=== PATIENT | male | born 1990 | race Caucasian/White ===

== ENCOUNTER 2018-03-05 03:54 | Inpatient (IN) | payer MEDICAID ==
--- NOTE | 2018-03-05 03:59 | ED PDOC ---
Psych Transfer Clearance - Clearance Statement Clearance Statement: Reviewed vital signs, lab results and transfer papers. Patient clinically stable for psychiatric admission.
[2018-03-05 04:08] VITALS: O2SAT 98
[2018-03-05] MEDS ORDERED: Alum-Mag Hydrox-Simethicone Susp (30 mL) PO PRN (04:20)
[2018-03-05] MEDS ORDERED: Magnesium Hydroxide Susp 30 ml UD PO PRN (04:20)
[2018-03-05] MEDS ORDERED: DiphenhydrAMINE 50 mg/ml Inj IM PRN (04:20)
--- NOTE | 2018-03-05 04:43 | PCM.BM ---
Treatment Plan Problems - Problems identified on initial assessmt Hopelessness/Helplessness Date Initiated: 03/05/18 Time Initiated: 04:42 Assessment reference: NA Status: Active Medication nonadherence Date Initiated: 03/05/18 Time Initiated: 04:42 Assessment reference: NA Status: Active Treatment assets and liabiliti Patient Assests: cooperative, ADL independent, physically healthy, negotiates basic needs, cognitively intact Patient Liabilities: substance abuse, language/speech - Milieu Protocol Maintain good personal hygiene: daily Encourage regular showers, daily Remind patient to perform daily oral care, daily Assist patient to perform ADL's Conduct patient checks and document Observation sheet: Q15 minutes Maintain personal safety: every shift Educate patient to report safety concerns to staff, every shift Monitor environment for contraband/sharps Medication safety: Monitor for expected outcome, potential side effects: every shift, Assess barriers to learning: every shift, Assess readiness for medication education: every shift
[2018-03-05 05:16] VITALS: RESP 18
[2018-03-05] MEDS ORDERED: Multivitamin With Minerals Tab PO SCH (09:00)
[2018-03-05 09:12] VITALS: BP 112/63; PULSE 67; TEMP 98
--- NOTE | 2018-03-05 13:35 | PCM.PSYCH ---
Initial Psychiatric Evaluation - Initial Psychiatric Evaluation Type of Admission: Voluntary Legal Status: Capacity Chief Complaint (in patient's own words): I need to be on methadone that is why I came Patient's Reaction to Hospitalization: pt requested transfer to REHAB History of Present Illness and Precipitating Events: PT is 27 ys old male with previous psychiatric diagnosis of opiate use disorder, pt denied any previous psychiatric hospitalization or treatment pt reported started using opiates at age 16, about three years ago started using more about 30times daily { reported sniffing } as per report pt was brought to [facility] by friends for suicidal attempt, pt however denied any depression , denied any suicidal attempts reported he presented to hospital to be detoxed on methadone or suboxone pt requested to be discharged to a detox center , denied changes in sleep or appetite denied depression, denid manic or psychotic symptoms Current Medications: Active Medications Generic Name Dose Route Start Last Admin Trade Name Freq PRN Reason Stop Dose Admin Acetaminophen 650 mg 03/05/18 04:20 Tylenol 325mg Tab PO Q4 PRN pain level 4-7 Al Hydrox/Mg Hydrox/Simethicone 30 ml 03/05/18 04:20 Maalox Plus 30 Ml PO Q4 PRN Dyspepsia Clonidine HCl 0.1 mg 03/05/18 04:45 03/05/18 10:00 Catapres PO 03/08/18 04:46 0.1 mg Q8 INDY Administration Diphenhydramine HCl 50 mg 03/05/18 04:20 Benadryl IM Q6 PRN Extrapyramidal S/S Unable PO Diphenhydramine HCl 50 mg 03/05/18 04:20 Benadryl PO Q6 PRN Extrapyramidal Symptoms Diphenhydramine HCl 50 mg 03/05/18 04:23 Benadryl PO HS PRN Sleep Haloperidol 5 mg 03/05/18 04:20 Haldol PO Q4 PRN Agitation Haloperidol Lactate 5 mg 03/05/18 04:20 Haldol IM Q4 PRN Agitation, Unable to Take PO Ibuprofen 600 mg 03/05/18 04:28 Motrin Tab PO 03/08/18 04:30 Q6 PRN Pain, severe (8-10) Loperamide HCl 2 mg 03/05/18 04:28 Imodium PO Q4 PRN After Loose Bowel Movement Lorazepam 1 mg 03/05/18 04:20 Ativan PO Q4 PRN Anxiety/Agitation Lorazepam 1 mg 03/05/18 04:24 Ativan IM Q4H PRN for severe agitation Magnesium Hydroxide 30 ml 03/05/18 04:20 Milk Of Magnesia PO HS PRN Constipation Multivitamins/Minerals 1 tab 03/05/18 09:00 03/05/18 09:59 Therapeutic-M Tab PO 1 tab DAILY INDY Administration Past Psychiatric History - Past Psychiatric History Explanation of prior treatment: pt denied any previous psychiatric hospitalizations denied any previous suicidal attempts History of ETOH/Drug Use: opiate use since age 16 Pertinent Medical Hx (Current Medical&Sleep Prob, Allergies): Allergies Allergy/AdvReac Type Severity Reaction Status Date / Time No Known Allergies Allergy Verified 03/05/18 04:00 Mental Status Examination - Personal Presentation Personal Presentation: Looks stated age - Affect Affect: Constricted - Motor Activity Motor Activity: Calm - Reliability in Providing Information Reliability in Providing Information: Fair - Speech Speech: Organized - Mood Mood: Neutral - Formal Thought Process Formal Thought Process: No Impairment Additional comments: pt denied perceptual disturbances non elicited - Obsessions/Compulsions Obsessions: No Compulsions: No - Cognitive Functions Orientation: Person, Place, Situation Sensorium: Alert Attention/Concentration: Attentive Judgement: Imparied, as evidence by: Poor judgement - Risk Risk: Withdrawal DSM 5 DX - DSM 5 DSM 5 Diagnosis: opiate use disorder - Recommended/Plan of Treatment Treatment Recommendations and Plan of Treatment: pt requested to be discharged to a detox center discussed with pt starting clonidine protocol. pt declined requested to be discharged to center with methadone or suboxone discussed with pt risk of relapse on discharge and possible overdose, pt understood risks and benefits yet requested to be discharged against medical advise pt at current mental status denied suuicidal or homicidal ideations, denied perceptual disturbances, pt will be discharged against medical advise
--- NOTE | 2018-03-05 13:38 | PCM.PYCHDC ---
Mental Status Examination - Mental Status Examination Orientation: Person, Place, Situation Memory: Intact Mood: Neutral Affect: Broad Speech: Appropriate Attention: WNL Concentration: WNL Association: WNL Fund of Knowledge: WNL Formal Thought Process: No Impairment Description of patient's judgement and insight: partial insight and poor judgment Psychotic Thoughts and Behaviors: pt denied psychotic symptoms non elicited Suicidal Ideation: No Current Homicidal Ideation?: No Discharge Summary - Discharge Note Reason for Hospitalization: pt requested transfer to REHAB PT is 27 ys old male with previous psychiatric diagnosis of opiate use disorder, pt denied any previous psychiatric hospitalization or treatment pt reported started using opiates at age 16, about three years ago started using more about 30times daily { reported sniffing } as per report pt was brought to [facility] by friends for suicidal attempt, pt however denied any depression , denied any suicidal attempts reported he presented to hospital to be detoxed on methadone or suboxone pt requested to be discharged to a detox center , denied changes in sleep or appetite denied depression, denid manic or psychotic symptoms Consultations:: List each consultation separately and include: 1. Reason for request. 2. Findings. 3. Follow-up Summary of Hospital Course include:: 1. Description of specific treatment plan utilized for patients during their course of treatmen. 2. Summarize the time- course for resolution of acute symptoms and/or regressed behaviors. 3. Describe issues identified and worked on during hospitalization. 4. Describe medication utilized. 5. Describe medical problems identified and treated. 6. Reassessment of suicide risk Summary of Hospital Course: pt requested to be discharged to a detox center discussed with pt starting clonidine protocol. pt declined requested to be discharged to center with methadone or suboxone discussed with pt risk of relapse on discharge and possible overdose, pt understood risks and benefits yet requested to be discharged against medical advise pt at current mental status denied suicidal or homicidal ideations, denied perceptual disturbances, pt will be discharged against medical advise - Final Diagnosis (DSM 5) Condition upon Discharge: STABLE Disposition: HOME/ ROUTINE Follow-up Treatment Plan: pt requested to be discharged to a detox center discussed with pt starting clonidine protocol. pt declined requested to be discharged to center with methadone or suboxone discussed with pt risk of relapse on discharge and possible overdose, pt understood risks and benefits yet requested to be discharged against medical advise pt at current mental status denied suuicidal or homicidal ideations, denied perceptual disturbances, pt will be discharged against medical advise - Smoking Cessation Smoking Cessation Medication prescribed: No - Antipsychotic Medications Pt discharged on 2 or more routine antipsychotic medications: No
== END 2018-03-05 14:28 | disposition home or self-care (01) | DRG 745 ==
LOC: H.ER 03:54 → H.PSYCH 04:10
PROVIDERS: ADMIT Psychiatry & Neurology Psychiatry; ATTEND Psychiatry & Neurology Psychiatry
PROC: HZ52ZZZ Individual Psychotherapy for Substance Abuse Treatment, Cognitive-Behavioral (ICD-10-PCS; principal; 2018-03-05)
DX: F11.10 Opioid abuse, uncomplicated (principal)